=== PATIENT | male | born 1955 | race Caucasian/White ===

== ENCOUNTER 2024-04-25 22:41 | Inpatient (IN) | payer MEDICARE, MEDICAID ==
[2024-04-25] MEDS: Sodium Chloride 0.9% 1,000 ML IV ONE (22:52)
[2024-04-25 23:11] LABS: BASOPHILS ABSOLUTE AUTO 0.01 K/uL (0.02-0.10); BASOPHILS PERCENT AUTO 0.1 % (0.0-0.5); EOSINOPHILS ABSOLUTE AUTO 0.01 K/uL (0.04-0.40); EOSINOPHILS PERCENT AUTO 0.1 % (1.0-5.0); HEMATOCRIT 40.4 % (40.0-54.0); LYMPHOCYTES ABSOLUTE AUTO 0.42 K/uL (1.50-4.00); LYMPHOCYTES PERCENT AUTO 3.4 % (20.0-40.0); MEAN CORPUSCULAR HEMOGLOBIN 26.3 pg (27.0-32.0); MEAN CORPUSCULAR HGB CONC 32.2 g/dL (31.0-35.0); MEAN CORPUSCULAR VOLUME 82 fL (76-96); MONOCYTES ABSOLUTE AUTO 0.57 K/uL (0.20-0.80); MONOCYTES PERCENT AUTO 4.7 % (3.0-10.0); NEUTROPHILS ABSOLUTE AUTO 11.22 K/uL (2.00-7.50); NEUTROPHILS PERCENT AUTO 91.7 % (45.0-70.0); PLATELET COUNT,PLT 158 K/uL (150-400); RED BLOOD CELL COUNT 4.94 M/uL (4.50-6.50); RED CELL DISTRIBUTION WIDTH 14.6 % (11.0-16.0); WHITE BLOOD CELL COUNT,WBC 12.2 K/uL (4.0-11.0)
[2024-04-25] MEDS: cefTRIAXone 2 GM Vial IVPUSH SCH (23:20)
[2024-04-25 23:22] LABS: A/G RATIO 1.1 (0.8-2.0); ALANINE AMINOTRANSFERASE,ALT 28 U/L (12-78); ALBUMIN 3.9 g/dL (3.4-5.0); ALKALINE PHOSPHATASE 103 U/L (46-116); ANION GAP 18.9 mmol/L (5.0-15.0); ASPARTATE AMNIOTRANSFERASE,AST 29 U/L (15-37); BILIRUBIN TOTAL 0.8 mg/dL (0.0-1.0); BLOOD UREA NITROGEN,BUN 28 mg/dL (8-26); BUN/CREATININE RATIO 14.4 (6-25); CALCIUM 9.3 mg/dL (8.5-10.1); CARBON DIOXIDE,CO2 23.6 mmol/L (21.0-32.0); CHLORIDE,CL 103 mmol/L (98-107); CREATININE 1.95 mg/dL (0.70-1.30); ESTIMATED GFR 37 mL/min (>60); GLUCOSE RANDOM 200 mg/dL (74-100); POTASSIUM,K 3.5 mmol/L (3.5-5.1); PROTEIN TOTAL,TP 7.6 g/dL (6.4-8.2); SODIUM,NA 142 mmol/L (136-145)
[2024-04-25 23:25] LABS: LACTIC ACID 5.3 mmol/L (0.4-2.0)
[2024-04-25 23:30] LABS: APPEARANCE,URINE CLEAR (CLEAR); COLOR,URINE YELLOW; PH,URINE 5.5 (5.0-8.0)
[2024-04-25 23:31] LABS: BILIRUBIN,URINE SMALL (NEGATIVE); GLUCOSE,URINE 100 mg/dL (NEGATIVE); KETONES,URINE NEGATIVE (NEGATIVE); LEUKOCYTE ESTERASE,URINE NEGATIVE (NEGATIVE); NITRITE,URINE NEGATIVE (NEGATIVE); OCCULT BLOOD,URINE MODERATE (NEGATIVE); PROTEIN,URINE >=300 mg/dL (NEGATIVE); UROBILINOGEN,URINE 0.2 E.U./dL (0.2-1.0)
[2024-04-25 23:32] LABS: EPITHELIAL CELLS,URINE FEW /HPF; SQUAMOUS EPITHELIAL CELLS,UR OCCASIONAL /HPF; WBC CLUMPS,URINE OCCASIONAL /HPF; WBC,URINE 0-5 /HPF
[2024-04-25 23:37] LABS: COARSE GRANULAR CASTS,URINE OCCASIONAL /HPF; HYALINE CASTS,URINE FEW /HPF
[2024-04-25 23:38] LABS: MUCUS,URINE FEW /HPF
[2024-04-26] MEDS: Sodium Chloride 0.9% 1,000 ML IV ONE (00:50)
[2024-04-26] MEDS: Acetaminophen 325 MG Tab PO PRN (00:55)
[2024-04-26] MEDS: VANCOmycin 2 GM in Sodium Chloride 0.9% 500 ML IV ONE (01:04)
[2024-04-26 01:13] LABS: INFLUENZA A NAA NEGATIVE (NEGATIVE); INFLUENZA B NAA NEGATIVE (NEGATIVE); RESPIRATORY SYNCYTIAL VIR NAA NEGATIVE (NEGATIVE)
[2024-04-26 01:15] LABS: CORONAVIRUS COVID-19 NAA NEGATIVE (NEGATIVE)
[2024-04-26] MEDS: Acetaminophen 325 MG Tab ONE (01:15)
[2024-04-26] MEDS: SODIUM CHLORIDE 0.9% IV ONE (01:16)
[2024-04-26] MEDS: VANCOMYCIN IV ONE (01:16)
[2024-04-26] MEDS ORDERED: WARFARIN SODIUM 10 MG PO SCH (02:00)
[2024-04-26] MEDS ORDERED: Warfarin 7.5 MG Tab PO SCH (02:00)
[2024-04-26] MEDS: Sodium Chloride 0.9% 1,000 ML IV SCH ×2 (02:25→04:25)
[2024-04-26] MEDS: Metoprolol Tartrate 50 MG Tab PO SCH (07:32)
[2024-04-26] MEDS: Docusate Sodium 250 MG Cap PO SCH (07:33)
[2024-04-26] MEDS: buPROPion 300 MG Tab.ER PO SCH (07:33)
[2024-04-26] MEDS: Allopurinol 100 MG Tab PO SCH (07:33)
[2024-04-26 08:23] LABS: HEMATOCRIT 37.8 % (40.0-54.0); LYMPHOCYTES ABSOLUTE AUTO 0.33 K/uL (1.50-4.00); MEAN CORPUSCULAR HEMOGLOBIN 26.2 pg (27.0-32.0); MEAN CORPUSCULAR HGB CONC 31.7 g/dL (31.0-35.0); MEAN CORPUSCULAR VOLUME 83 fL (76-96); MEAN PLATELET VOLUME 10.8 fL (6.0-10.0); MONOCYTES ABSOLUTE AUTO 0.81 K/uL (0.20-0.80); MONOCYTES PERCENT AUTO 4.9 % (3.0-10.0); NEUTROPHILS ABSOLUTE AUTO 15.31 K/uL (2.00-7.50); NEUTROPHILS PERCENT AUTO 93.1 % (45.0-70.0); PLATELET COUNT,PLT 116 K/uL (150-400); RED BLOOD CELL COUNT 4.58 M/uL (4.50-6.50); RED CELL DISTRIBUTION WIDTH 14.9 % (11.0-16.0); WHITE BLOOD CELL COUNT,WBC 16.5 K/uL (4.0-11.0)
[2024-04-26 08:37] LABS: LACTIC ACID 2.1 mmol/L (0.4-2.0)
[2024-04-26 09:05] LABS: PRO B-TYPE NATRIUR PEPT,BNPPRO 33303 pg/mL (0-125)
[2024-04-26 09:07] LABS: ETHANOL BLOOD MEDICAL < 3.0 mg/dL (<3.0)
[2024-04-26 09:08] LABS: TROPONIN I HIGH SENSITIVITY 1155.2 pg/ml (<=60.4)
[2024-04-26] MEDS: Furosemide 40 MG/4 ML VIAL IVPUSH ONE ×2 (09:13→14:23)
[2024-04-26 09:20] LABS: INR 1.8 (1.0-3.5)
[2024-04-26 09:22] LABS: PROTHROMBIN TIME 18.6 sec (9.0-11.5)
[2024-04-26] MEDS: Sodium Chloride 0.9% 10 ML Syringe FLUSH PRN (09:24)
[2024-04-26 09:39] LABS: ANION GAP 16.1 mmol/L (5.0-15.0); BUN/CREATININE RATIO 16.9 (6-25); CALCIUM 8.4 mg/dL (8.5-10.1); CREATININE 1.89 mg/dL (0.70-1.30); EST CRCL DRUG DOSING (CG) 43.45 mL/min; POTASSIUM,K 3.1 mmol/L (3.5-5.1)
[2024-04-26] MEDS: DOPamine/Dextrose 5%-Water 400 MG/250 ML BAG IV SCH (15:07)
[2024-04-26 15:52] LABS: BASOPHILS ABSOLUTE AUTO 0.01 K/uL (0.02-0.10); BASOPHILS PERCENT AUTO 0.1 % (0.0-0.5); HEMATOCRIT 38.5 % (40.0-54.0); HEMOGLOBIN 12.2 g/dL (13.0-18.0); LYMPHOCYTES ABSOLUTE AUTO 0.44 K/uL (1.50-4.00); MEAN CORPUSCULAR HEMOGLOBIN 26.3 pg (27.0-32.0); MEAN CORPUSCULAR HGB CONC 31.7 g/dL (31.0-35.0); MEAN CORPUSCULAR VOLUME 83 fL (76-96); MEAN PLATELET VOLUME 10.4 fL (6.0-10.0); MONOCYTES ABSOLUTE AUTO 0.59 K/uL (0.20-0.80); NEUTROPHILS ABSOLUTE AUTO 13.64 K/uL (2.00-7.50); NEUTROPHILS PERCENT AUTO 92.9 % (45.0-70.0); PLATELET COUNT,PLT 112 K/uL (150-400); RED BLOOD CELL COUNT 4.64 M/uL (4.50-6.50); RED CELL DISTRIBUTION WIDTH 15.1 % (11.0-16.0); WHITE BLOOD CELL COUNT,WBC 14.7 K/uL (4.0-11.0)
[2024-04-26] MEDS: Ondansetron 4 MG/2 ML SDV IVPUSH PRN (16:16)
[2024-04-26 16:20] LABS: ANION GAP 14.8 mmol/L (5.0-15.0); BUN/CREATININE RATIO 16.1 (6-25); CALCIUM 8.5 mg/dL (8.5-10.1); CREATININE 2.17 mg/dL (0.70-1.30); EST CRCL DRUG DOSING (CG) 37.84 mL/min; POTASSIUM,K 3.8 mmol/L (3.5-5.1); VANCOMYCIN TROUGH 12.1 ug/mL (10.0-15.0)
[2024-04-26] MEDS: VANCOmycin 1.25 GM/250 ML 1.25 GM in Premix Bag 1 BAG IV SCH (17:35)
[2024-04-26] MEDS: Warfarin 5 MG Tab PO ONE (17:35)
[2024-04-26] MEDS ORDERED: Non-Formulary Medication 1 Each (Warfarin Sodium [Jantoven] 10 MG) PO SCH (18:00)
[2024-04-26] MEDS ORDERED: Warfarin 5 MG Tab PO SCH ×2 (18:00)
[2024-04-26] MEDS: Bisacodyl 5 MG Tab PO SCH (19:55)
[2024-04-27] MEDS ORDERED: fentaNYL 75 MCG/HR Transdermal Patch TRDERM SCH (08:00)
[2024-04-27 08:31] LABS: BASOPHILS ABSOLUTE AUTO 0.01 K/uL (0.02-0.10); BASOPHILS PERCENT AUTO 0.1 % (0.0-0.5); EOSINOPHILS ABSOLUTE AUTO 0.01 K/uL (0.04-0.40); EOSINOPHILS PERCENT AUTO 0.1 % (1.0-5.0); HEMATOCRIT 38.5 % (40.0-54.0); HEMOGLOBIN 12.1 g/dL (13.0-18.0); LYMPHOCYTES ABSOLUTE AUTO 0.53 K/uL (1.50-4.00); LYMPHOCYTES PERCENT AUTO 5.2 % (20.0-40.0); MEAN CORPUSCULAR HEMOGLOBIN 26.1 pg (27.0-32.0); MEAN CORPUSCULAR HGB CONC 31.4 g/dL (31.0-35.0); MEAN CORPUSCULAR VOLUME 83 fL (76-96); MONOCYTES ABSOLUTE AUTO 0.64 K/uL (0.20-0.80); MONOCYTES PERCENT AUTO 6.2 % (3.0-10.0); NEUTROPHILS ABSOLUTE AUTO 9.08 K/uL (2.00-7.50); NEUTROPHILS PERCENT AUTO 88.4 % (45.0-70.0); PLATELET COUNT,PLT 88 K/uL (150-400); RED BLOOD CELL COUNT 4.64 M/uL (4.50-6.50); RED CELL DISTRIBUTION WIDTH 15.1 % (11.0-16.0); WHITE BLOOD CELL COUNT,WBC 10.3 K/uL (4.0-11.0)
[2024-04-27 08:44] LABS: INR 1.8 (1.0-3.5)
[2024-04-27 08:45] LABS: PROTHROMBIN TIME 18.1 sec (9.0-11.5)
[2024-04-27 09:07] LABS: ANION GAP 14.4 mmol/L (5.0-15.0); BUN/CREATININE RATIO 17.4 (6-25); CALCIUM 8.9 mg/dL (8.5-10.1); CARBON DIOXIDE,CO2 22.7 mmol/L (21.0-32.0); CREATININE 2.36 mg/dL (0.70-1.30); POTASSIUM,K 4.1 mmol/L (3.5-5.1); VANCOMYCIN TROUGH 14.3 ug/mL (10.0-15.0)
[2024-04-27] MEDS: Acetaminophen 325 MG Tab PO PRN (09:16)
[2024-04-27] MEDS: fentaNYL 75 MCG/HR Transdermal Patch TRDERM SCH (09:19)
[2024-04-27 09:24] LABS: EST CRCL DRUG DOSING (CG) 28.09 mL/min
[2024-04-27 09:26] LABS: TROPONIN I HIGH SENSITIVITY 2297.7 pg/ml (<=60.4)
[2024-04-27] MEDS ORDERED: Metoprolol Tartrate 50 MG Tab PO ONE (12:30)
[2024-04-27] MEDS: Furosemide 40 MG/4 ML VIAL IVPUSH ONE (12:37)
[2024-04-27] MEDS: Metoprolol Tartrate 25 MG Tab PO ONE (12:38)
[2024-04-27] MEDS: Metoprolol Tartrate 25 MG Tab PO SCH ×2 (13:21→19:36)
[2024-04-27] MEDS ORDERED: VANCOmycin 1 GM in Sodium Chloride 0.9% 250 ML IV SCH (17:00)
[2024-04-27] MEDS ORDERED: Warfarin 7.5 MG Tab PO SCH ×3 (18:00)
[2024-04-27] MEDS: Warfarin 5 MG Tab PO SCH (18:28)
[2024-04-27] MEDS: Azithromycin 500 MG in Sodium Chloride 0.9% 250 ML IV ONE (18:30)
[2024-04-27] MEDS ORDERED: Furosemide 40 MG/4 ML VIAL IVPUSH ONE (20:00)
[2024-04-27] MEDS ORDERED: Metoprolol Tartrate 25 MG Tab PO SCH (20:00)
[2024-04-27] MEDS: amLODIPine 5 MG Tab PO SCH (23:00)
[2024-04-28 08:47] LABS: BASOPHILS ABSOLUTE AUTO 0.01 K/uL (0.02-0.10); BASOPHILS PERCENT AUTO 0.1 % (0.0-0.5); EOSINOPHILS ABSOLUTE AUTO 0.04 K/uL (0.04-0.40); EOSINOPHILS PERCENT AUTO 0.6 % (1.0-5.0); HEMATOCRIT 39.1 % (40.0-54.0); HEMOGLOBIN 12.4 g/dL (13.0-18.0); MEAN CORPUSCULAR HEMOGLOBIN 26.3 pg (27.0-32.0); MEAN CORPUSCULAR HGB CONC 31.7 g/dL (31.0-35.0); MEAN CORPUSCULAR VOLUME 83 fL (76-96); MEAN PLATELET VOLUME 11.4 fL (6.0-10.0); MONOCYTES PERCENT AUTO 8.5 % (3.0-10.0); NEUTROPHILS ABSOLUTE AUTO 5.95 K/uL (2.00-7.50); NEUTROPHILS PERCENT AUTO 83.8 % (45.0-70.0); PLATELET COUNT,PLT 93 K/uL (150-400); RED BLOOD CELL COUNT 4.72 M/uL (4.50-6.50); WHITE BLOOD CELL COUNT,WBC 7.1 K/uL (4.0-11.0)
[2024-04-28 09:05] LABS: INR 2.3 (1.0-3.5)
[2024-04-28 09:14] LABS: PROTHROMBIN TIME 23.2 sec (9.0-11.5)
[2024-04-28 09:19] LABS: A/G RATIO 0.8 (0.8-2.0); ALBUMIN 2.9 g/dL (3.4-5.0); ANION GAP 7.2 mmol/L (5.0-15.0); BILIRUBIN TOTAL 0.7 mg/dL (0.0-1.0); BUN/CREATININE RATIO 22.1 (6-25); CALCIUM 9.7 mg/dL (8.5-10.1); CARBON DIOXIDE,CO2 27.3 mmol/L (21.0-32.0); CREATININE 2.08 mg/dL (0.70-1.30); EST CRCL DRUG DOSING (CG) 39.48 mL/min; POTASSIUM,K 3.5 mmol/L (3.5-5.1); PROTEIN TOTAL,TP 6.7 g/dL (6.4-8.2); VANCOMYCIN TROUGH 8.5 ug/mL (10.0-15.0)
[2024-04-28 09:37] LABS: TROPONIN I HIGH SENSITIVITY 1002.4 pg/ml (<=60.4)
[2024-04-28] MEDS: Furosemide 40 MG/4 ML VIAL IVPUSH SCH (10:02)
[2024-04-28] MEDS: Azithromycin 250 MG in Sodium Chloride 0.9% 250 ML IV SCH (20:15)
[2024-04-29 08:59] LABS: BASOPHILS ABSOLUTE AUTO 0.01 K/uL (0.02-0.10); BASOPHILS PERCENT AUTO 0.1 % (0.0-0.5); EOSINOPHILS ABSOLUTE AUTO 0.04 K/uL (0.04-0.40); EOSINOPHILS PERCENT AUTO 0.6 % (1.0-5.0); HEMATOCRIT 37.1 % (40.0-54.0); HEMOGLOBIN 11.9 g/dL (13.0-18.0); LYMPHOCYTES ABSOLUTE AUTO 0.69 K/uL (1.50-4.00); LYMPHOCYTES PERCENT AUTO 9.7 % (20.0-40.0); MEAN CORPUSCULAR HEMOGLOBIN 26.2 pg (27.0-32.0); MEAN CORPUSCULAR HGB CONC 32.1 g/dL (31.0-35.0); MEAN CORPUSCULAR VOLUME 82 fL (76-96); MONOCYTES ABSOLUTE AUTO 0.74 K/uL (0.20-0.80); MONOCYTES PERCENT AUTO 10.3 % (3.0-10.0); NEUTROPHILS ABSOLUTE AUTO 5.67 K/uL (2.00-7.50); NEUTROPHILS PERCENT AUTO 79.3 % (45.0-70.0); PLATELET COUNT,PLT 131 K/uL (150-400); RED BLOOD CELL COUNT 4.54 M/uL (4.50-6.50); RED CELL DISTRIBUTION WIDTH 14.6 % (11.0-16.0); WHITE BLOOD CELL COUNT,WBC 7.2 K/uL (4.0-11.0)
[2024-04-29 09:26] LABS: INR 2.6 (1.0-3.5)
[2024-04-29 09:37] LABS: PROTHROMBIN TIME 25.9 sec (9.0-11.5)
[2024-04-29 09:44] LABS: A/G RATIO 0.8 (0.8-2.0); ANION GAP 6.9 mmol/L (5.0-15.0); BILIRUBIN TOTAL 0.9 mg/dL (0.0-1.0); BUN/CREATININE RATIO 24.3 (6-25); CALCIUM 10.1 mg/dL (8.5-10.1); CARBON DIOXIDE,CO2 32.1 mmol/L (21.0-32.0); CREATININE 1.69 mg/dL (0.70-1.30); EST CRCL DRUG DOSING (CG) 48.59 mL/min; PROTEIN TOTAL,TP 6.8 g/dL (6.4-8.2)
[2024-04-29 10:21] LABS: TROPONIN I HIGH SENSITIVITY 468.5 pg/ml (<=60.4)
[2024-04-29 13:27] VITALS: BP 132/75; PULSE 84
== END 2024-04-29 15:30 | DRG 871 ==
LOC: LB.ED 22:41 → LB.MS 04-26 01:08 → UNDOADMIN 04-26 02:20 → LB.MS 04-26 02:20 → MERGE 04-26 02:20 → LB.MS 04-26 13:57 → UNDODISIN 04-29 15:30
PROVIDERS: ADMIT Family Medicine; ATTEND Physician Assistant
DX: A41.9 Sepsis, unspecified organism (principal); I21.4 Non-ST elevation (NSTEMI) myocardial infarction; J18.9 Pneumonia, unspecified organism; N17.9 Acute kidney failure, unspecified; Z66 Do not resuscitate; R65.20 Severe sepsis without septic shock; I11.0 Hypertensive heart disease with heart failure; I50.9 Heart failure, unspecified; E11.9 Type 2 diabetes mellitus without complications; M10.9 Gout, unspecified; I48.91 Unspecified atrial fibrillation; I95.9 Hypotension, unspecified; Z98.890 Other specified postprocedural states; Z95.2 Presence of prosthetic heart valve; Z88.5 Allergy status to narcotic agent; Z79.2 Long term (current) use of antibiotics; Z79.01 Long term (current) use of anticoagulants; Z79.899 Other long term (current) drug therapy
CPT/HCPCS: 0241U; 36415; 51702; 70450; 71045; 71250; 72125; 80048; 80053; 80202; 80307; 81001; 82947; 83605; 83880; 84145; 84484; 85025; 85610; 86140; 87040; 93005; 93010; 99223; 99232; 99233; 99238; 99285; A0425; A0428; A0429; A9270-GY; J0456; J0696; J1265; J1940; J2405; J3372; J7030; J7040; J7050